=== PATIENT | female | born 1940 | race Caucasian/White ===

== ENCOUNTER 2016-08-26 10:15 | Emergency (ER) | payer MEDICARE, OTHER ==
[~2016-08-26 10:15] MED LIST: AVAPRO75 MG PO; BUSPIRONE HCL15 MG PO; CARDIZEM CD240 MG PO; EFFEXOR XR75 MG PO; FEOSOL325 MG PO; FLONASE ALLER15.8 ML; FORADIL INH; LACTINEX1 EACH PO; PULMICORT FLE180 MCG INH; ROBAXIN500 MG PO; SINGULAIR10 MG PO; XANAX0.25 MG PO; XOPENEX (00.63 MG/3 NEB; XOPENEX1.25 MG/3 NEB; ZITHROMAX500 MG PO; [UNRECOGNIZED DRUG - OTHER] INH
[2016-08-26 11:00] LABS: BASOPHIL 0.5 % (0-2); EOSINOPHIL 2.5 % (0-7); HCT 36.7 % (37.0-47.0); HGB 11.9 g/dl (12.5-16.0); LYMPHOCYTE 31.6 % (15-48); MCH 31.1 pg (25.0-31.0); MCHC 32.4 g/dL (32.0-36.0); MCV 95.8 fL (78.0-100.0); MONOCYTE 5.8 % (0-12); MPV 8.9 fL (6.0-9.5); NEUTROPHIL 59.6 % (41-80); PLT 194 K/uL (150-400); RBC 3.83 M/uL (4.20-5.40); WBC 4.3 K/uL (4.0-10.5)
[2016-08-26 11:16] LABS: BILIRUBIN - TOTAL 0.4 mg/dL (0.1-1.0); CREATININE 0.8 mg/dL (0.5-1.0); GLOBULIN (CALCULATION) 2.3 g/dL (2.2-4.2); POTASSIUM 4.1 mmol/L (3.5-5.1); TOTAL PROTEIN 6.3 g/dL (6.4-8.3)
[2016-08-26 11:29] LABS: TROPONIN T < 0.010 ng/mL
[2016-08-26 11:30] LABS: PRO-BNP 135 pg/mL (0-125)
[2016-10-28] MEDS ORDERED: DUONEB 2.5-0.5M1 AMP NEB ×2 (13:25)
[2016-10-28] MEDS ORDERED: PROAIR HFA8.5 GM INH (13:25)
[2016-10-28] MEDS ORDERED: ATIVAN0.5 MG PO (13:25)
[2016-10-28] MEDS ORDERED: ACETAMINOPHEN325 MG PO (13:25)
[2016-10-28] MEDS ORDERED: DOXYCYCLINE HY100 M2 PO (13:26)
[2016-10-28] MEDS ORDERED: PREDNISONE 10MG10 MG PO (13:26)
== END 2016-08-26 15:02 | disposition home or self-care (01) ==
LOC: FER 10:15
PROVIDERS: Emergency Medicine
DX: R06.02 Shortness of breath (principal); R06.89 Other abnormalities of breathing; J44.9 Chronic obstructive pulmonary disease, unspecified; I10 Essential (primary) hypertension; F17.200 Nicotine dependence, unspecified, uncomplicated; Z79.51 Long term (current) use of inhaled steroids; Z79.899 Other long term (current) drug therapy; Z99.81 Dependence on supplemental oxygen
CPT/HCPCS: 36415; 36600; 71010; 80053; 82803; 83880; 84484; 85025; 93005; 94660